=== PATIENT | male | born 1960 ===

== ENCOUNTER 2016-08-13 16:03 | Emergency (ER) | payer BC ==
[2016-08-13 16:32] VITALS: TEMP 98.1
--- NOTE | 2016-08-13 17:14 | C.PDOC ---
History Of Present Illness 55 y/o M p/w laceration to hand suffered 4 hours ago. Patient states last tetanus within the last 10 years. He states he cleaned it out prior to arrival. Accidentally cut himself with a binder and box builder like blade that was not particularly dirty. He states he only wants to make sure it does not get infected and he does not want stitches for it. He states he does not care if the scar is larger than if it had been sutured. Time Seen by Provider: 08/13/16 16:49 Chief Complaint (Nursing): Abnormal Skin Integrity Past Medical History Vital Signs: Last Vital Signs Temp 98.1 F 08/13/16 16:27 Pulse 58 L 08/13/16 16:27 Resp 20 08/13/16 16:27 BP 143/78 08/13/16 16:27 Pulse Ox 98 08/13/16 16:27 Family History: States: No Known Family Hx - Social History Hx Alcohol Use: Yes Hx Substance Use: No - Immunization History Hx Tetanus Toxoid Vaccination: No (pt unsure) Review Of Systems Except As Marked, All Systems Reviewed And Found Negative. Constitutional: Negative for: Fever Respiratory: Negative for: Shortness of Breath Physical Exam - Physical Exam Appears: No Acute Distress Skin: Other (laceration, 2cm to thenar eminence, appears clean, no foreign bodies seen, no discharge, no bleeding.) Extremity: No Tenderness (FROM of hand and digits.) ED Course And Treatment O2 Sat by Pulse Oximetry: 98 Medical Decision Making Medical Decision Making: Tetanus up to date. Cleaned by tech in ER. No suturing performed as patient refused. Bacitracin topically, gauze, watch for signs of infection and if so, taken antibiotics to completion. Disposition - Disposition Referrals: Brian Griffin MD [Staff Provider] - Disposition: HOME/ ROUTINE Disposition Time: 17:15 Condition: STABLE Prescriptions: Amoxicillin/Clavulanate [Augmentin 875 MG-125 MG] 1 tab PO BID #20 tab Bacitracin Ointment [Bacitracin] 1 appl TOP TID #1 tube Instructions: Laceration Without Closure (ED) - Clinical Impression Clinical Impression: Laceration
[2016-08-13 17:25] VITALS: BP 155/84; PULSE 86; RESP 18; O2SAT 94
== END 2016-08-13 17:25 | disposition home or self-care (01) ==
LOC: C.ER 16:03
DX: S61.419A Laceration without foreign body of unspecified hand, initial encounter (principal); W45.8XXA Other foreign body or object entering through skin, initial encounter

== ENCOUNTER 2017-11-02 08:45 | Emergency (ER) | payer BC ==
[2017-11-02 08:54] VITALS: RESP 20
[2017-11-02 09:36] LABS: BASO % 0.4 % (0.0-2.0); EOS # 0.1 K/uL (0.0-0.7); EOS % 1.3 % (0.0-4.0); HEMOGLOBIN 14.3 g/dL (12.0-18.0); LYMPH # 1.8 K/uL (1.0-4.3); LYMPH % 24.9 % (20.0-40.0); MEAN CELL VOLUME 84.9 fL (80.0-94.0); MEAN CORPUSCULAR HEMOGLOBIN 28.8 pg (27.0-31.0); MONO # 0.3 K/uL (0.0-0.8); MONO % 4.6 % (0.0-10.0); NEUT % 68.8 % (50.0-75.0); NRBC % 0.1 % (0.0-2.0); RBC 4.94 Mil/uL (4.40-5.90); RED CELL DISTRIBUTION WIDTH 13.7 % (11.5-14.5); WHITE BLOOD COUNT 7.2 K/uL (4.8-10.8)
--- NOTE | 2017-11-02 09:36 | C.PDOC ---
History Of Present Illness 56 y/o male presents to ED for evaluation of palpitations 1 hour ago which has resolved now. He described as heart racing. Denies chest pain, shortness of breath, or other complaints. Time Seen by Provider: 11/02/17 09:16 Chief Complaint (Nursing): Palpitations History Per: Patient History/Exam Limitations: no limitations Onset/Duration Of Symptoms: Hrs Current Symptoms Are (Timing): Gone Past Medical History Reviewed: Historical Data, Nursing Documentation, Vital Signs Vital Signs: Last Vital Signs Temp 98.7 F 11/02/17 11:08 Pulse 63 11/02/17 11:08 Resp 20 11/02/17 11:08 BP 132/79 11/02/17 11:08 Pulse Ox 98 11/02/17 11:08 Family History: States: Unknown Family Hx - Social History Hx Alcohol Use: Yes Hx Substance Use: No - Immunization History Hx Tetanus Toxoid Vaccination: No (pt unsure) Review Of Systems Except As Marked, All Systems Reviewed And Found Negative. Constitutional: Negative for: Fever, Chills Cardiovascular: Negative for: Chest Pain, Palpitations Respiratory: Negative for: Cough, Shortness of Breath Gastrointestinal: Negative for: Nausea, Vomiting Physical Exam - Physical Exam Appears: Non-toxic, No Acute Distress Skin: Normal Color, Warm, Dry Head: Atraumatic, Normacephalic Eye(s): bilateral: Normal Inspection Oral Mucosa: Moist Gingiva: Normal Appearing Chest: Symmetrical, No Tenderness Cardiovascular: Rhythm Regular, No Murmur Respiratory: Normal Breath Sounds, No Rales, No Rhonchi, No Wheezing Gastrointestinal/Abdominal: Soft, No Tenderness Extremity: Normal ROM Neurological/Psych: Oriented x3, Normal Speech Gait: Steady ED Course And Treatment - Laboratory Results Result Diagrams: 11/02/17 09:30 11/02/17 09:30 ECG: Interpreted By Me, Viewed By Me ECG Rhythm: Sinus Rhythm Rate From EC (bpm) O2 Sat by Pulse Oximetry: 97 (RA) Pulse Ox Interpretation: Normal Medical Decision Making Medical Decision Making: Plan: Blood work CXR Disposition - Disposition Referrals: [facility] [Outside] [facility] [Outside] Disposition: HOME/ ROUTINE Disposition Time: 13:00 Condition: STABLE Additional Instructions: Return to ED if any increase symptoms Follow up with your PMD or clinic for further evaluation Instructions: Palpitations Forms: [facility] (Ivorian) Print Language: ERITREAN - POA Present On Arrival: None - Clinical Impression Clinical Impression: Palpitations - 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 - Scribe Statement The provider has reviewed the documentation as recorded by the Scribe KP All medical record entries made by the Scribe were at my direction and personally dictated by me. I have reviewed the chart and agree that the record accurately reflects my personal performance of the history, physical exam, medical decision making, and the department course for this patient. I have also personally directed, reviewed, and agree with the discharge instructions and disposition.
[2017-11-02 09:45] LABS: ALB/GLOB RATIO 1.6 (1.0-2.1)
[2017-11-02 09:48] LABS: ALBUMIN 4.3 g/dL (3.5-5.0); ALT/SGPT 37 U/L (21-72); AST/SGOT 27 U/L (17-59); BLOOD UREA NITROGEN 23 mg/dL (9-20); CALCIUM 9.2 mg/dl (8.6-10.4); GFR AFRICAN-AMERICAN > 60; GFR NON-AFRICAN AMERICAN > 60
[2017-11-02 11:09] VITALS: BP 132/79; PULSE 63; TEMP 98.7
[2017-11-02 15:39] VITALS: O2SAT 97
--- NOTE | 2017-11-02 21:23 | RAD ---
Date of service: 11/02/2017 HISTORY: SOB COMPARISON: No prior. TECHNIQUE: Chest PA and lateral FINDINGS: LUNGS: No evidence of focal infiltrate or consolidation in the lungs. Prominent lung markings are noted bilaterally. PLEURA: No significant pleural effusion identified. No pneumothorax apparent. CARDIOVASCULAR: Normal. OSSEOUS STRUCTURES: No significant abnormalities. VISUALIZED UPPER ABDOMEN: Normal. OTHER FINDINGS: None. IMPRESSION: Prominent lung markings. No evidence of focal consolidation. No evidence of cardiomegaly.
== END 2017-11-02 11:15 | disposition home or self-care (01) ==
LOC: C.ER 08:45
DX: R00.2 Palpitations (principal)